=== PATIENT | male | born 1995 | race Caucasian/White ===

== ENCOUNTER 2016-08-06 02:09 | Emergency (ER) | payer SELFPAY ==
[~2016-08-06] VITALS: Ht 162.6 cm; Wt 66.0 kg
[2016-08-06] MEDS ORDERED: TETANUS, DIPHTHERIA, PERTUSSIS VAC/PF 0.5ML (>7YR OLD) IM ONE (03:45)
[2016-08-06] MEDS ORDERED: IBUPROFEN 600MG TABLET PO ONE (03:45)
[2016-08-06 04:34] VITALS: BP 132/77
== END 2016-08-06 05:46 | disposition home or self-care (01) ==
LOC: ER 02:09
DX: S00.33XA Contusion of nose, initial encounter (principal); S00.83XA Contusion of other part of head, initial encounter; Y08.89XA Assault by other specified means, initial encounter; Y93.89 Activity, other specified; Y92.89 Other specified places as the place of occurrence of the external cause; Y99.8 Other external cause status
CPT/HCPCS: 90471; 90715; 99283